=== PATIENT | male | born 1960 | race Caucasian/White ===

== ENCOUNTER 2024-01-02 09:52 | Outpatient (OUT) | payer MEDICARE, SELFPAY ==
[2024-01-02 10:57] LABS: Percent Iron Saturation 34.5 %
[2024-01-02 11:14] LABS: Prostate Specific Antigen Dx 0.24 ng/mL (<=4.00)
[2024-01-02 11:32] LABS: Alanine Aminotransferase 21 U/L (16-63); Albumin Level 3.8 g/dL (3.4-5.0); Alkaline Phosphatase 69 U/L (46-116); Anion Gap 14.6; Aspartate Amino Transferase 20 U/L (15-37); BUN Creatinine Ratio 22.8; Bilirubin Total 0.3 mg/dL (0.2-1.0); Calcium 9.1 mg/dL (8.5-10.1); Carbon Dioxide 26.6 mmol/L (21.0-32.0); Chloride 106 mmol/L (98-107); Chol HDL Ratio 2.4; Cholesterol 178 mg/dL (<=200); Estimated GFR (African America >60 (>=60); Estimated GFR (Non-African Ame >60 (>=60); Globulin 3.9 g/dL; Glucose 84 mg/dL (74-106); HDL Cholesterol 73 mg/dL (40-60); Magnesium 1.7 mg/dL (1.8-2.4); Potassium 4.2 mmol/L (3.5-5.1); Sodium 143 mmol/L (136-145); Thyroid Stimulating Hormone 0.957 uIU/mL (0.358-3.740); Total Protein 7.7 g/dL (6.4-8.2); Triglycerides 66 mg/dL (<=150); VLDL CHOLESTEROL 13.2 mg/dL
[2024-01-02 12:08] LABS: Basophils Absolute Auto 0.1 10^3/uL (0.0-0.1); Basophils Percent Auto 1.2 % (0.2-2.0); Eosinophils Absolute Auto 0.2 10^3/uL (0.0-0.7); Eosinophils Percent Auto 2.2 % (0.9-7.0); Hematocrit 33.9 % (42.0-54.0); Hemoglobin 11.1 g/dL (14.0-18.0); Immature Granulocytes Abs Auto 0.02 10^3/uL (0.00-0.03); Immature Granulocytes Pct Auto 0.2 % (0.0-0.5); Lymphocytes Percent Auto 23.1 % (20.5-60.0); Mean Corpuscular HGB Conc 32.7 g/dL (29.9-35.2); Mean Corpuscular Hemoglobin 29.1 pg (25.9-34.0); Mean Platelet Volume 9.2 fL (9.5-13.5); Monocytes Absolute Auto 0.4 10^3/uL (0.3-0.8); Monocytes Percent Auto 4.7 % (1.7-12.0); Neutrophils Absolute Auto 5.9 10^3/uL (1.4-6.5); Neutrophils Percent Auto 68.6 % (43.0-75.0); Platelet Count 213 10^3/uL (150-450); Red Blood Count 3.81 10^6/uL (4.70-6.10); Red Cell Distribution Width 12.6 % (11.0-15.0); White Blood Count 8.6 10^3/uL (4.0-11.0)
== END 2024-01-02 09:53 | disposition home or self-care (01) ==
LOC: LAB 09:59
PROVIDERS: PCP Family Medicine; Visit Provider Family Medicine
DX: E78.2 Mixed hyperlipidemia (principal); Z12.5 Encounter for screening for malignant neoplasm of prostate; K21.9 Gastro-esophageal reflux disease without esophagitis; E55.9 Vitamin D deficiency, unspecified; D50.8 Other iron deficiency anemias
CPT/HCPCS: 36415; 80053; 80061; 82306; 83540; 83550; 83735; 84153; 84443; 85025

== ENCOUNTER 2025-09-10 08:50 | Outpatient (OUT) | payer MEDICARE, SELFPAY ==
--- OUTSIDE RECORDS SUMMARY | 2014-01-02 08:59 | XMS_ITS | Continuity of Care Document ---
Author Organization [facility] Address [address] [place] [address] Phone Care Team Providers Care Quality Assurance Monitor Name Role Phone Merna Davies Unavailable Unavailable Allergies, Adverse Reactions, Alerts Substance Reaction Status Criticality No Known allergies Medications Medication Instructions Dosage Effective Dates (start - stop) Status Comments omeprazole 20 mg Cap, Delayed Release take 1 capsule (20MG) by oral route every day before a meal 20 MG - Active prednisone 20 mg Tab take 1 tablet (20MG ) by oral route every day 20 MG - Active metoprolol tartrate 25 mg Tab take 1 tablet (25MG) by oral route every day 25 MG - Active Nexium 40 mg Cap take 1 capsule (40MG ) by oral route 2 times every day 40 MG - Active methimazole 10 mg Tab take 1 tablet (10M G) by oral route every day 10 MG - Active folic acid 1 mg Tab take 3 Tablet (3MG) by oral route every morning 3 MG - Active Procedures Procedure Date OFFICE/OUTPATIENT VISIT, EST MEASURE BLOOD OXYGEN LEVEL EST OFFICE VISIT LEVEL 3 EST OFFICE VISIT LEVEL 4 OFFICE/OUTPATIENT VISIT, EST EST OFFICE VISIT LEVEL 4 ROUTINE VENIPUNCTURE CBC W/DIFF & PLT COMP METABOLIC PANEL IRON/TOTAL IRON BIND CAPACITY 2 EST OFFICE VISIT LEVEL 3 OFFICE/OUTPATIENT VISIT, EST ROUTINE VENIPUNCTURE COMP METABOLIC PANEL FERRITIN IRON/TOTAL IRON BIND CAPACITY 2 CBC W/DIFF & PLT PSA, TOTAL MEASURE BLOOD OXYGEN LEVEL NEW OFFICE VISIT LEVEL 2 NEW OFFICE VISIT LEVEL 2 Advance Directives Directive Yes / No Effective Date File Name No Information Encounters Encounter Description Practice Location Reason(s) For Visit Diagnoses Date Provider Providers Copied on Encounter [facility], [address] [place] [address], [id number] , tel:+ [phone] [facility] No Information 4 Hemmer Merna. [address] [place] [address], [id number] , [place]. [facility], [address] [place] [address], [id number] , tel: [phone] [facility] No Information 3 Hemmer Merna. [address] [place] [address], [id number] , [place]. [facility], [address] [place] [address], [id number] , [place] tel: [phone] [facility] No Information 3 Lamp Laura. [address] [place] [address], [id number] , [place]. tel: [phone] OFFICE/OUTPA TIENT VISIT, EST [facility], [address] [place] [address], [id number] , tel:+ [phone] [facility] medication refill (chief complaint) Pituitary adenomaStomach ulcerHypothyroidism 3 Hemmer Merna. [address] [place] [address], [id number] , [place]. [facility], [address] [place] [address], [id number] , tel:+ [phone] [facility] Abnormal loss of weight and underweightDiarrhea 2 Hemmer Merna. [address] [place] [address], [id number] , [place]. EST OFFICE VISIT LEVEL 3 [facility], [address], [place], [id number] , [place] tel:+ [phone] [facility] f/u chest CT (chief complaint) Shortness of BreathAbnormal loss of weight and underweightHemoptysi sNausea aloneDiarrhea 2 Hemmer Merna. [address] [place], [place], [id number] , [place]. EST OFFICE VISIT LEVEL 4 [facility], [address] [place] [address], [id number] , [place] tel:+ [phone] [facility] review test results (chief complaint) Shortness of BreathPain in thoracic spineAbnormal loss of weight and underweightHemoptysi sNausea alone 2 Hemmer Merna. [address] [place] [address], [id number] , [place]. EST OFFICE VISIT LEVEL 4 [facility], [address] [place] [address], [id number] , [place] tel: [phone] [facility] follow up on lab / diagnostic test (chief complaint) AnemiaShortness of BreathChest Pain, UnspecifiedSeborrhei c dermatitis Sep-2 0- 2 Hemmer Merna. [address] [place] [address], [id number] , [place]. [facility], [address] [place] [address], [id number] , tel: [phone] [facility] No Information Jul- 2- 2 Hemmer Merna. [address] [place] [address], [id number] , [place]. EST OFFICE VISIT LEVEL 3 [facility], [address] [place] [address], [id number] , [place] tel:+ [phone] [facility] fatigue (chief complaint) AnemiaShortness of BreathPain in thoracic spineUnspecified protein-calorie malnutritionAbnormal Liver Enzymes [place]- 3 2 Hemmer Merna. [address] [place] [address], [id number] , [place]. [facility], [address] [place] [address], [id number] , tel:+ [phone] [facility] No Information 2 Hemmer Merna. [address] [place], [place], [id number] , . NEW OFFICE VISIT LEVEL 2 [facility], [address] [place], [place], [id number] , tel: [phone] [facility] fatigue (chief complaint) OtherAnemia, Iron DeficiencyShortness of BreathHematuria, UnspecifiedPain in thoracic spineUnspecified protein-calorie malnutrition 2 Hemmer Merna. [address] [place], [place], [id number] , [place]. Family History Family Member Type Diagnosis Age At Onset Father Problem (finding) Alive and well 78 Problem (finding) Family history of Cance r Sister Problem (finding) migraine Payers Payer name Insurance type Covered alliance party ID Authoriza tion(s) No Information Social History Type Description Quantity Date Captured Comments Sex Male Smoking Status No Information Chief Complaint And Reason For Visit No Information Reason For Referral Reason For Referral No Information Plan Of Treatment Date Type Action Status Goal Tobacco cessation counseling completed History Of Present Illness Encounter Date Complaint History Of Prese nt Illness No Information Functional Status Date Functional Assessmen t No Information Instructions Date Instruction Additional Infor mation No Information Assessments Type Assessment Date No Information Patient Care Teams Name Effective Dates (start - stop) Status Members No Information
--- OUTSIDE RECORDS SUMMARY | 2025-09-10 08:55 | XMS_ITS | Encounter Summary ---
Author Organization [facility] Address [address] [place] [address] Care Team Providers Care Data Base Design Analyst Name Role Phone Niru Dunlap CORPORATE REAL ESTATE SPECIALIST Unavailable [phone] Dennis Ramirez MD Primary Care Provider [phone] Dennis Ramirez MD Unavailable [phone] Encounter Details Date Type Department Care Team (Late st Contact Info) Description 12/10/2023 Abstract [facility] [address] [place] [id number] Dennis Ramirez MD [address] [place] [address] Social History Tobacco Use Types Packs/Day Years Used Date Smoking Tobacco: Former Cigarettes Q uit: 2020 Smokeless Tobacco: Never Alcohol Use Standard Drinks/Week Comments Never 0 (1 standard drink = 0.6 oz pur e alcohol) AUDIT-C Answer Date Recorded Q1: How often do you have a drink containing alcohol? Never 09/30/2023 Q2: How many drinks containi ng alcohol do you have on a typical day when you are drinking? Patient does not drink Q3: How often do you have si x or more drinks on one occasion? Never 09/30/2023 PHQ-2 Answer Date Recorded Patient Health Questionnaire-2 Score 0 07/04/2023 Sex and Gender Information Value Date Recorded Sex Assigned at Not on file Legal Sex Male 6:53 PM EDT Gender Identity Not on file Sexual Orientation Not on file documented as of this encounter Plan of Treatment Upcoming Encounters Date Type Department Care Team (Late st Contact Info) Description 09/30/2025 2:40 PM EST Office Visit [facility] [address] [place] [address] Dennis Ramirez MD [address] [place] [address] documented as of this encounter Visit Diagnoses Not on filedocumented in this encounter Additional Health Concerns Assessment Noted Time PHQ-9 Depression Total Score: 0 07/04/20 23 1:00 PM EDT documented as of this encounter Care Teams Data Base Design Analyst Relationship Specialty Start Date End Date Niru Dunlap NP [address] [place] [address] PCP - ACO Reach 04/18/23 01/23/24 Dennis Ramirez MD [address] [place] [address] PCP - General Family Medicine 05/21/23 Dennis Ramirez MD [address] [place] [address] PCP - ACO Reach 01/24/24 documented as of this encounter
--- OUTSIDE RECORDS SUMMARY | 2025-09-10 08:55 | XMS_ITS | Encounter Summary ---
Author Organization [facility] Address [address] [place] [address] Care Team Providers Care Credit Specialist Name Role Phone Dennis Ramirez MD Primary Care Provider [phone] Dennis Ramirez MD Unavailable [phone] Encounter Details Date Type Department Care Team (Late st Contact Info) Description 06/30/2024 Abstract [facility] [address] [place] [address] Dennis Ramirez MD [address] [place] [address] Social History Tobacco Use Types Packs/Day Years Used Date Smoking Tobacco: Former Cigarettes Q uit: 2020 Smokeless Tobacco: Never Alcohol Use Standard Drinks/Week Comments Never 0 (1 standard drink = 0.6 oz pur e alcohol) Humiliation, Afraid, Rape, and Kick questionnair e Answer Date Recorded Within the last year, have y ou been afraid of your partner or ex-partner? No 12/30/2023 Within the last year, have y ou been humiliated or emotionally abused in other ways by your partner or ex-partner? No Within the last year, have y ou been kicked, hit, slapped, or otherwise physically hurt by your partner or ex-partner? No 12/30/2023 Within the last year, have y ou been raped or forced to have any kind of sexual activity by your partner or ex-partner? No 12/30/2023 Social Connection and Isolation Panel Answer Date Recorded In a typical week, how many times do you talk on the phone with family, friends, or neighbors? Three times a week 12/30/2023 How often do you get togethe r with friends or relatives? Once a week 12/30/2023 How often do you attend chur or taoism services? More than 4 times per year 12/30/2023 Do you belong to any clubs o r organizations such as rastafari groups, unions, fraternal or athletic groups, or school groups? Yes 12/30/2023 How often do you attend meet ings of the clubs or organizations you belong to? Never 12/30/2023 Are you , , di vorced, , never , or living with a partner? Never 12/30/2023 AUDIT-C Answer Date Recorded Q1: How often do you have a drink containing alcohol? Never 12/30/2023 Q2: How many drinks containi ng alcohol do you have on a typical day when you are drinking? Patient does not drink Q3: How often do you have si x or more drinks on one occasion? Never 12/30/2023 Overall Financial Resource Strain (CARDIA) Answe r Date Recorded How hard is it for you to pa y for the very basics like food, housing, medical care, and heating? Not hard at all 12/30/2023 PHQ-2 Answer Date Recorded Patient Health Questionnaire-2 Score 1 06/30/2024 [facility] - Occupational Stress Questionnaire Answer Date Recorded Do you feel stress - tense, restless, nervous, or anxious, or unable to sleep at night because your mind is troubled all the time - these days? To some extent 12/30/2023 Exercise Vital Sign Answer Date Recorde d On average, how many days pe r week do you engage in moderate to strenuous exercise (like a brisk walk)? 5 days 12/30/2023 On average, how many minutes do you engage in exercise at this level? 40 min 12/30/2023 Hunger Vital Sign Answer Date Recorded Within the past 12 months, y ou worried that your food would run out before you got the money to buy more. Never true 12/30/19 24 Within the past 12 months, t he food you bought just didn't last and you didn't have money to get more. Never true 12/30/2023 PRAPARE - Transportation Answer Date Re corded In the past 12 months, has l ack of transportation kept you from medical appointments or from getting medications? No 03/2024 In the past 12 months, has l ack of transportation kept you from meetings, work, or from getting things needed for daily living? No 12/30/2023 Housing Stability Vital Sign Answer Sky e Recorded In the last 12 months, was t here a time when you were not able to pay the mortgage or rent on time? No 12/30/2023 In the last 12 months, how many places have you lived? 1 12/30/2023 In the last 12 months, was t here a time when you did not have a steady place to sleep or slept in a [place] (including now)? No 12/30/2023 Sex and Gender Information Value Date Recorded Sex Assigned at Not on file Legal Sex Male 6:53 PM EDT Gender Identity Not on file Sexual Orientation Not on file documented as of this encounter Functional Status * Over the past 2 weeks, how often have you been bothered by any of the following problems? Question Answer Date of Assessment Author Little interest or pleasure in doing things Several days 06/30/2024 2:00 PM MELANIET Geovanna Kim MA Feeling down, depressed, or hopeless Not at all 06/30/2024 2:00 PM EDT Geovanna Kim MA Patient Health Questionnaire-2 Score 1 06/30/2024 2:00 PM EDT Fanta Kim MA * Question Answer Date of Assessment Author Trouble falling or staying asleep, or sleeping too much Not at all 06/30/2024 2:00 PM MELANIET Geovanna Kim MA Feeling tired or having little energy Not at all 06/30/2024 2:00 PM MELANIET Geovanna Kim MA Poor appetite or overeating Not at all 06/30/2024 2: 00 PM EDT Geovanna Kim MA Feeling bad about yourself - or that you are a failure or have let yourself or your family down Not at all 06/30/2024 2:00 PM EDT Geovanna Kim MA Trouble concentrating on things, such as reading the newspaper or watching television Not at all 06/30/2024 2:00 PM EDT Geovanna Kim MA Moving or speaking so slowly that other people could have noticed? Or the opposite - being so fidgety or restless that you have been moving around a lot more than usual. Not at all 06/30/2024 2:00 PM EDT Geovanna Kim MA Thoughts that you would be better off or hurting yourself in some way Not at all 06/30/2024 2:00 PM EDT Mariaelena Kim MA Patient Health Questionnaire-9 Score 1 06/30/2024 2:00 PM EDT Fanta Kim MA documented as of this encounter Plan of Treatment Upcoming Encounters Date Type Department Care Team (Late st Contact Info) Description 09/30/2025 2:40 PM EST Office Visit [facility] [address] [place] [address] Dennis Ramirez MD [address] [place] [address] documented as of this encounter Visit Diagnoses Not on filedocumented in this encounter Additional Health Concerns Assessment Noted Time PHQ-9 Depression Total Score: 1 06/30/20 24 2:00 PM EDT documented as of this encounter Care Teams Credit Specialist Relationship Specialty Start Date End Date Dennis Ramirez MD [address] [place] [address] PCP - General Family Medicine 05/21/23 Dennis Ramirez MD [address] [place] [address] PCP - ACO Reach 01/24/24 documented as of this encounter
--- OUTSIDE RECORDS SUMMARY | 2025-09-10 08:56 | XMS_ITS | Encounter Summary ---
Author Organization [facility] Address [address] [place] [address] Care Team Providers Care Cloud Solutions Architect Name Role Phone Niru Dunlap NP Unavailable [phone] Dennis Ramirez MD Primary Care Provider [phone] Dennis Ramirez MD Unavailable [phone] Encounter Details Date Type Department Care Team (Late Contact Info) Description 06/29/2023 Orders Only [facility] [address] [place] [address] Dennis Ramirez MD [address] [place] [address] Social History Tobacco Use Types Packs/Day Years Used Date Smoking Tobacco: Never Assessed Sex and Gender Information Value Date Recorded Sex Assigned at Not on file Legal Sex Male 6:53 PM EDT Gender Identity Not on file Sexual Orientation Not on file documented as of this encounter Plan of Treatment Upcoming Encounters Date Type Department Care Team (Late st Contact Info) Description 09/30/2025 2:40 PM EST Office Visit [facility] [address] [place] [phone] Dennis Ramirez MD [address] [place] [address] documented as of this encounter Visit Diagnoses Not on filedocumented in this encounter Care Teams Cloud Solutions Architect Relationship Specialty Start Date End Date Niru Dunlap NP [address] [place] [address] PCP - ACO Reach 04/18/23 01/23/24 Dennis Ramirez MD [address] [place] [address] PCP - General Family Medicine 05/21/23 Dennis Ramirez MD [address] [place] [address] PCP - ACO Reach 01/24/24 documented as of this encounter
--- OUTSIDE RECORDS SUMMARY | 2025-09-10 08:56 | XMS_ITS | Encounter Summary ---
Author Organization [facility] Address [address] [place] [address] Care Team Providers Care Local Operator Name Role Phone Niru Dunlap FAN ENGINE ENGINEER Primary Care Provider [phone] Source Comments In the event this information is protected by the Federal Confidentiality of Alcohol and Drug AbusePatient Records regulations: The Federal rules restrict any use of the information to criminally investigate or prosecute any alcohol or drug abuse patient.[facility] Encounter Details Date Type Department Care Team (Latest Contact Info) Description 07/03/2022 H&P External-NonCCF Provider, External, PA-C Do not enter address information under generic External Provider. Social History Tobacco Use Types Packs/Day Years Used Date Smoking Tobacco: Some Days Cigarettes 0.5 15 Started: 11/08/1995; Last attempted to quit: 11/08/2010 Smokeless Tobacco: Never Alcohol Use Standard Drinks/Week Comments Yes 0 (1 standard drink = 0.6 oz pur e alcohol) once per month Sex and Gender Information Value Date Recorded Sex Assigned at Not on file Legal Sex Male 11:29 AM EDT Gender Identity Not on file Sexual Orientation Not on file Occupation Industry Job Start Date Job End Date Retired Not on file Not on file Not on file documented as of this encounter Functional Status * Are you deaf or do you have serious difficulty hearing? Answer Date of Assessment Author Yes 02/10/2015 9:28 AM Teri Llanes MA * Are you blind or do you have serious difficulty seeing, even when wearing glasses? Answer Date of Assessment Author No 02/10/2015 9:28 AM Teri Llanes MA * Do you have serious difficulty walking or climbing stairs? Answer Date of Assessment Author No 02/10/2015 9:28 AM Teri Llanes MA * Do you have difficulty dressing or bathing? Answer Date of Assessment Author No 02/10/2015 9:28 AM Teri Llanes MA * Because of a physical, mental, or emotional condition, do you have difficulty doing errands alone such as visiting a doctor's office or shopping? Answer Date of Assessment Author No 02/10/2015 9:28 AM Trei Llanes MA documented as of this encounter Mental Status * Because of a physical, mental, or emotional condition, do you have serious difficulty concentrating, remembering, or making decisions? Answer Entry Date Author No 02/10/2015 9:28 AM Teri Llanes MA documented in this encounter Plan of Treatment Not on file documented as of this encounter Visit Diagnoses Not on filedocumented in this encounter Care Teams Local Operator Relationship Specialty Start Date End Date Niru Dunlap NP [address] [place] [address] PCP - General Family Medicine 07/03/22 documented as of this encounter
--- OUTSIDE RECORDS SUMMARY | 2025-09-10 08:56 | XMS_ITS | Encounter Summary ---
Author Organization [facility] Address [address] [place] [address] Care Team Providers Care Credit Administrator Name Role Phone Niru Dunlap MEDIA LAW FACULTY MEMBER Unavailable [phone] Dennis Ramirez MD Primary Care Provider [phone] Dennis Ramirez MD Unavailable [phone] Encounter Details Date Type Department Care Team (Late st Contact Info) Description 10/01/2023 Abstract [facility] [address] [place] [phone] Dennis Ramirez MD [address] [place] [address] Social History Tobacco Use Types Packs/Day Years [...] [facility] [address] [place] [address] Dennis Ramirez MD [address] [place] [address] documented as of this encounter Visit Diagnoses Not on filedocumented in this encounter Additional Health Concerns Assessment Noted Time PHQ-9 Depression Total Score: 0 07/04/20 23 1:00 PM EDT documented as of this encounter Care Teams Credit Administrator Relationship Specialty Start Date End Date Niru Dunlap NP [address] [place] [address] PCP - ACO Reach 04/18/23 01/23/24 Dennis Ramirez MD [address] [address] PCP - General Family Medicine 05/21/23 Dennis Ramirez MD [address] [place] [address] PCP - ACO Reach 01/24/24 documented as of this encounter
--- OUTSIDE RECORDS SUMMARY | 2025-09-10 08:56 | XMS_ITS | Clinical Summary ---
Author Organization [facility] Address [address] [place] [address] Care Team Providers Care Manager Stylist Name Role Phone Sanjuana Dunlape Clemente BARNETT Primary Care Provider + [phone] Allergies Active Allergy Reactions Criticality Noted Date Comments Meloxicam Rash 07/10/2022 Medications metHIMazole (TAPAZOLE) 5 mg tablet Take 5 mg by mouth once daily. Active metoprolol tartrate, short acting, (LOPRESSOR) 25 mg tablet Take 1 tablet by mouth once daily. 90 tablet 1 6 Active omeprazole (PRILOSEC) 20 mg capsule Take 1 capsule by mouth once daily. 30 capsule 7 Active cabergoline (DOSTINEX) 0.5 mg tablet TAKE 1/2 TABLET BY MOUTH ON SATURDAY AND 1/2 TABLET ON THURSDAYS 12 tablet 7 Active pravastatin (PRAVACHOL) 20 mg tablet Take 20 mg by mouth once daily. Active esomeprazole (NEXIUM) 20 mg capsule Take 20 mg by mouth once daily. Active levothyroxine (SYNTHROID) 25 mcg tablet Take 25 mcg by mouth daily before breakfast. Active cholecalciferol, vitamin D3, (VITAMIN D3 ORAL) Take 125 mcg by mouth once daily. Active HYDROcodone-Aceta minophen (NORCO) 7.5-325 mg per tablet Take 1 tablet by mouth every 8 hours as needed for pain. Active Iron Polysacch [id number] (NIFEREX/FERREX-1 50 FORTE) 150-25-1 mg-mcg-mg capIndications:An emia, unspecified type,Pituitary macroadenoma (HCC) Take 1 capsule by mouth once daily. 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 Hearing loss 02/10/2015 Immunizations Immunization Administration Dates Next Due pneumococcal conjugate (PCV1 3) vaccine, 13 valent (PREVNAR 13) 02/02/2016 pneumococcal polysaccharide (PPV23) vaccine, 23 valent (PNEUMOVAX 23) 02/11/2017 Family History Medical History Relation Comments Cancer Maternal Uncle 1 Cancer Maternal Uncle 2 Cancer Maternal Uncle 3 Cancer Maternal Uncle 4 Relation Status Comments Father Maternal Uncle 1 Maternal Uncle 2 Maternal Uncle 3 Maternal Uncle 4 Mother Social History Tobacco Use Types Packs/Day Years Used Date Smoking Tobacco: Former Cigarettes 0.5 15 1 01/09/1995 - 11/08/2010 Passive Smoke Exposure: Past Smokeless Tobacco: Never Tobacco Cessation:Counseling Given: Not Answered Alcohol Use Standard Drinks/Week Comments Yes 0 (1 standard drink = 0.6 oz pur e alcohol) once per month Area Deprivation Index Answer Date Fadi rded National Score (1-100), lower number is lower ri sk 52 12/11/2022 State Score (1-10), lower number is lower risk N ot on file 12/11/2022 Data from: https://www.neighborhoodatlas.medicine.[facility].edu/. Last address used for calculation [address] 12/11/2022 Sex and Gender Information Value Date Recorded Sex Assigned at Not on file Legal Sex Male 11:29 AM EDT Gender Identity Not on file Sexual Orientation Not on file Occupation Industry Job Start Date Job End Date Retired Not on file Not on file Not on file Last Filed Vital Signs Vital Sign Reading Time Taken Comments Blood Pressure 103/70 07/25/2022 1:59 PM EDT Pulse 69 07/25/2022 1:59 PM EDT Temperature 36.6 C (97.8 F) 07/25/2022 1:59 PM EDT Respiratory Rate 16 07/25/2022 1:59 PM EDT Oxygen Saturation 98% 07/25/2022 1:59 PM EDT Inhaled Oxygen Concentration - - Weight 82.2 kg (181 lb 3.2 oz) 07/25/2022 1:59 P M EDT Height 173.7 cm (5' 8.39 ) 07/25/2022 1:59 PM ED T Body Mass Index 27.24 07/25/2022 1:59 PM EDT Plan of Treatment Health Maintenance Due Date Last Done Comments Abdominal Aortic Aneurysm Screening 1959 Anxiety Screening 1977 Depression Screening 1977 HIV Screening 1977 Hepatitis C Screening 1977 DTaP,Tdap,Td Vaccine (1 - Tdap) [address] Colonography 2004 Cologuard (FIT-DNA) 2004 Colonoscopy 2004 Sigmoidoscopy 2004 Shingrix Vaccine (1 of 2) 2009 Pneumococcal Vaccine: 50+ (3 of 3 - PCV20 or PCV21) 02/11/2022 02/11/2017, 02/02/2016 Colorectal Cancer Screening 07/24/2023 Fecal Occult Blood 07/24/2023 07/24/2022 Advance Directive Discussion 11/25/2024 Diabetes Screening 07/11/2025 07/11/2022, 02/10/2015 Covid-19 Vaccine ( - 2024- season) 2025 Influenza Vaccine (#1) 2025 Prostate Cancer Screening Discussion 06/17/2026 07/2 02/2021, 02/10/2015 RSV Vaccine (1 - 1-dose 75+ series) 2034 Procedures Procedure Name Priority Date/Time Associated Diagnosis Comments HGB FECAL IA Routine 07/24/2022 10:30 AM EDT Anemia, unspecified type COMPREHENSIVE METABOLIC PANEL Routine 07/11/2022 1:22 PM EDT Anemia, unspecified type PSA/PROSTSPECAG SCRN Routine 02/10/2015 10:47 AM EDT Special screening for malignant neoplasm of prostate Pituitary macroadenoma (HCC) from Last 3 Months or Most Recently Relevant to Health Maintenance Results * FECAL OCCULT BLOOD TEST (07/24/2022 10:30 AM EDT) Pathologist [facility] Occult Blood, Stool Negative Negative 07/25/2022 12:09 PM EDT [facility] Stool Random STOOL SPECIMEN / Unknown 07/24/2022 10:30 AM EDT 07/24/2022 1:11 PM EDT Narrative [facility] - 07/25/2022 12:09 PM EDT This test was developed and its performance characteristics determined by [facility]'s [facility] [place] ([facility]). It has not been cleared or approved by the FDA. -[facility] is regulated under CLIA as qualified to perform high-complexity testing. This test is used for clinical purposes. It should not be regarded as investigational or for research. us Baldemar Riggins MD LABORATORY Final Result [facility] [address] [place] [address], [place] * (ABNORMAL) COMP METABOLIC PANEL (07/11/2022 1:22 PM EDT) [facility] Protein, Total 6.4 6.3 - 8.0 g/dL 07/11/2022 1:51 PM EDT [facility] Albumin 4.1 3.9 - 4.9 g/dL 07/11/2022 1:51 PM EDT [facility] Calcium, Total 9.7 8.5 - 10.2 mg/dL 07/11/2022 1:51 PM EDT [facility] Bilirubin, Total 0.3 0.2 - 1.3 mg/dL 07/11/2022 1:51 PM EDT [facility] Alkaline Phosphatase 68 38 - 113 U/L 07/11/2022 1:51 PM EDT [facility] AST 27 14 - 40 U/L 07/11/2022 1:51 PM EDT [facility] ALT 22 10 - 54 U/L 07/11/2022 1:51 PM EDT [facility] Glucose 93 74 - 99 mg/dL 07/11/2022 1:51 PM [facility] Comment: The [place] Diabetes Association (ADA) provides guidance for cutoff values for fasting glucose and random glucose. The ADA defines fasting as no caloric intake for at least 8 hours. Fasting plasma glucose results between 100 to 125 mg/dL indicate increased risk for diabetes (prediabetes). Fasting plasma glucose results greater than or equal to 126 mg/dL meet the criteria for diagnosis of diabetes. In the absence of unequivocal hyperglycemia, results should be confirmed by repeat testing. In a patient with classic symptoms of hyperglycemia or hyperglycemic crisis, random plasma glucose results greater than or equal to 200 mg/dL meet the criteria for diagnosis of diabetes. Reference: Standards of Medical Care in Diabetes 2016, [place] Diabetes Association. Diabetes Care. 2016.39(Suppl 1). BUN 18 9 - 24 mg/dL 07/11/2022 1:51 PM [facility] Creatinine 1.18 0.73 - 1.22 mg/dL 07/11/2022 1:51 PM T [facility] Sodium 141 136 - 144 mmol/L 07/11/2022 1:51 PM [facility] Potassium 3.6(L) 3.7 - 5.1 mmol/L 07/11/2022 1:51 PM T [facility] Chloride 106(H) 97 - 105 mmol/L 07/11/2022 1:51 PM [facility] CO2 26 22 - 30 mmol/L 07/11/2022 1:51 PM T [facility] Anion Gap 9 9 - 18 mmol/L 07/11/2022 1:51 PM [facility] Estimated Glomerular Filtration Rate 70 >=60 mL/min/1. 73m 07/11/2022 1:51 PM [facility] Comment:Estimated Glomerular Filtration Rate (eGFR) is calculated using the 2020 CKD-EPI creatinine equation. This equation utilizes serum creatinine, sex, and age as parameters. The creatinine assay has traceable calibration to isotope dilution- mass spectrometry. Refer to KDIGO guidelines for clinical interpretation. In patients with unstable renal function, e.g. those with acute kidney injury, the eGFR may not accurately reflect actual GFR. Blood BLOOD SPECIMEN / Unknown Venipuncture / Unknown 07/11/2022 1:22 PM EDT 07/11/2022 1:22 PM EDT us Baldemar Riggins MD LABORATORY Final Result [facility] [address] [place] [address] * PSA/PROSTSPECAG SCRN (02/10/2015 10:47 AM EDT) PSA Screening 0.70 0.00 - 2.59 ng/mL 02/10/2015 5:16 PM EDT [facility] Comment:Total PSA test metho dology used is the Electrochemiluminescence Immunoassay. Blood specimen (specimen) BLOOD SPECIMEN / Unknown 02/10/2015 10:47 AM EDT 02/10/2015 10:49 AM EDT us Rafael Aaron MD LABORATORY Final Resul t [facility] [address] [place] [address] from Last 3 Months or Most Recently Relevant to Health Maintenance Insurance MEDICARE Member Subscriber Plan / Payer (Ef fective 2014-Present) Name:Trever Alvarado Member ID:[id number] Relation to Subscriber:Self Name:Trever Alvarado Subscriber ID:[id number] Payer ID:Not on file Group ID:Not on file Type:Medicare Address: [facility] [place] [id number] Care Teams Manager Stylist Relationship Specialty Start Date End Date Niru Dunlap NP [address] [place] [address] PCP - General Family Medicine 07/03/22
--- OUTSIDE RECORDS SUMMARY | 2025-09-10 08:56 | XMS_ITS | Clinical Summary ---
Author Organization [facility] Address [address] [place] [address] Care Team Providers Care Biodiesel Engine Specialist Name Role Phone Dennis Ramirez MD Primary Care Provider Dennis Ramirez MD Unavailable [phone] Allergies No known active allergies Medications Cyanocobalamin (Vitamin B-12) 1000 MCG sublingual tablet Take 1,000 mcg by mouth in the morning. 12/27/19 23 Active cholecalciferol (Vitamin D-3) 125 MCG (5000 UT) capsuleIndications :Vitamin D deficiency Take 1 capsule (125 mcg) by mouth in the morning. 90 capsule 1 07/22/20 23 Active Iron Polysacch [id number] (Poly-Iron 150 Forte) 150-0.025-1 MG capsuleIndications :Other iron deficiency anemia Take 1 capsule by mouth in the morning. 90 capsule 2 11/04/20 23 Active pravastatin (Pravachol) 20 MG tabletIndications: Mixed hyperlipidemia Take 1 tablet (20 mg) by mouth Daily 100 tablet 1 12/30/19 25 Active Additional Information Patient not taking.Reported on 06/29/2025 esomeprazole (NexIUM) [address] capsuleIndications :Gastroesophageal reflux disease without esophagitis Take 1 capsule (20 mg) by mouth Daily 100 capsule 1 06/29/20 25 026 Active HYDROcodone-acetam inophen ([place]) 7.5-325 MG tabletIndications: Other chronic pain,Unilateral post-traumatic osteoarthritis, right hip,Other idiopathic scoliosis, site unspecified Take 1 tablet by mouth every 6 (six) hours if needed for severe pain 100 tablet 08/16/20 25 025 Active HYDROcodone-acetam inophen ([place]) 7.5-325 MG tabletIndications: Other chronic pain,Unilateral post-traumatic osteoarthritis, right hip,Other idiopathic scoliosis, site unspecified Take 1 tablet by mouth every 6 (six) hours if needed for severe pain 100 tablet 07/19/20 25 025 Discontin ued(Reord er) Active Problems Problem Noted Date Diagnosed Date Right hip pain 06/29/2023 Chronic fatigue syndrome 05/17/2023 Gastroesophageal reflux disease 05/17/2023 Hard of hearing 05/17/2023 Iron deficiency anemia 05/17/2023 Hyperlipidemia 05/17/2023 Narcotic dependence, episodic use 05/17/2023 Neoplasm of pituitary gland 05/17/2023 Other chronic pain 05/17/2023 Other idiopathic scoliosis, site unspecified Seasonal allergic rhinitis 05/17/2023 Unilateral post-traumatic osteoarthritis, right hip 05/17/2023 Vitamin D deficiency 05/17/2023 Resolved Problems Problem Noted Date Diagnosed Date Resolved Date Grief reaction 05/17/2023 07/04/2023 [id number] condition 05/17/2023 08/ Adjustment disorder with depressed mood 12/18/2021 07/04/2023 Acquired hypothyroidism 06/21/2021 08/1 FPC current use of systemic steroids 06/21/2021 07/04/2023 Compression fracture of vertebra 06/08/2020 07/04/2023 Essential hypertension 02/11/201707/04 Hyperthyroidism 02/10/2015 07/04/2023 Pituitary macroadenoma 02/10/201507/04 Overview (07/04/2023): 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 07/04/2023 Encounters Date Type Department Care Team Description 08/16/2025 Refill [facility] [address] [place] [address] Tere Rangel Other chronic pain; Unilateral post-traumatic osteoarthritis, right hip; Other idiopathic scoliosis, site unspecified 07/15/2025 Refill [facility] [address] [place] [address] Tere Rangel Other chronic pain; Unilateral post-traumatic osteoarthritis, right hip; Other idiopathic scoliosis, site unspecified 06/29/2025 4:00 PM EDT Office Visit [facility] [address] [place] [address] Dennis Ramirez MD Medicare annual wellness visit, subsequent (Primary Dx); Gastroesophageal reflux disease without esophagitis; Neoplasm of pituitary gland; Chronic fatigue syndrome; Other idiopathic scoliosis, site unspecified; Vitamin D deficiency; Other iron deficiency anemia; Seasonal allergic rhinitis due to pollen; Mixed hyperlipidemia ; Encounter for screening for malignant neoplasm of colon; Advance directive discussed with patient; Narcotic dependence, episodic use (HCC) 06/29/2025 Bamboo flowsheet [facility] [address] [place] [address] Dennis Ramirez MD 06/29/2025 Travel 06/14/2025 Refill [facility] [address] [place] [address] Dennis Ramirez MD Other chronic pain; Unilateral post-traumatic osteoarthritis, right hip; Other idiopathic scoliosis, site unspecified from Last 3 Months Immunizations Immunization Administration Dates Next Due Influenza, injectable, MDCK, preservative free, quadrivalent 09/30/2023 Pneumococcal Conjugate PCV 13 02/02/2016 Pneumococcal Polysaccharide PPSV23 02/11/2017 Family History Medical History Relation Name Comments No Known Problems Brother yash palm 1963 No Known Problems Daughter juli 1984 No Known Problems Father natalia palm 1930(9 4 ) Heart disease Mother nico 86 Cardiomyopathy Sister 1 michelle 1957 Peripheral vascular disease Sister 1 michelle Raynaud syndrome Sister 1 michelle No Known Problems Sister 2 vladimir saw3201 No Known Problems Sister 3 devan 1948 Relation Name Status Comments Brother yash Alive Daughter juli Alive Father natalia Alive Mother nico Sister 1 michelle Alive Sister 2 vladimir Alive Sister 3 devan Alive Social History Tobacco Use Types Packs/Day Years Used Date Smoking Tobacco: Former Cigarettes Q uit: 2020 Smokeless Tobacco: Never Tobacco Cessation:Counseling Given: Not Answered Alcohol Use Standard Drinks/Week Comments Never 0 [...] week 12/30/2023 How often do you attend [facility] or [employer] services? More than 4 times per year 12/30/2023 Do you belong to any clubs o r organizations such as mormon groups, unions, fraternal or athletic groups, or [...] Date Recorded Patient Health Questionnaire-2 Score 0 06/29/2025 [facility] of Occupat ional Health - Occupational Stress [...] place to sleep or slept in a retirement (including now)? No 12/30/2023 Sex and Gender Information Value Date Recorded Sex Assigned at Not on file Legal Sex Male 6:53 PM EDT Gender Identity Not on file Sexual Orientation Not on file Last Filed Vital Signs Vital Sign Reading Time Taken Comments Blood Pressure 122/70 06/29/2025 4:09 PM EDT Pulse 72 06/29/2025 4:09 PM EDT Temperature 36.4 C (97.5 F) 06/29/2025 4:09 PM EDT Respiratory Rate 16 06/29/2025 4:09 PM EDT Oxygen Saturation 96% 06/29/2025 4:09 PM EDT Inhaled Oxygen Concentration - - Weight 69.9 kg (154 lb) 06/29/2025 4:09 PM EDT Height 175.3 cm (5' 9 ) 06/29/2025 4:09 PM EDT Body Mass Index 22.74 06/29/2025 4:09 PM EDT Plan of Treatment Upcoming Encounters Date Type Department Care Team (Late st Contact Info) Description 09/30/2025 2:40 PM EST Office Visit [facility] [address] [place] [address] Dennis Ramirez MD [address] [place] [address] Health Maintenance Due Date Last Done Comments CT Colonography 1959 FIT-DNA 1959 Sigmoidoscopy 1959 Pneumococcal Vaccine: 65+ Ye ars (3 of 3 - PCV20 or PCV21) 02/11/2022 02/11/2017, 02/02/2016 Colonoscopy 12/02/2022 12/02/2012 Colorectal Cancer Screening 07/24/2023 FIT 07/24/2023 07/24/2022, 07/24/2022 FOBT 07/24/2023 07/24/2022, 07/24/2022 Influenza Vaccine (#1) 2025 09/30/2023 Medicare Annual Wellness (AWV) 06/29/2026 06/29/2025 Procedures Procedure Name Priority Date/Time Associated Diagnosis Comments HEMOCCULT STL QL IA Routine 07/24/2022 COLONOSCOPY Routine 12/02/2012 12:00 PM EST from Last 3 Months or Most Recently Relevant to Health Maintenance Results * HEMOCCULT STL QL IA (07/24/2022) HEMOCCULT STL QL IA Negative Negative [facility] PERFORMING LAB: see note [facility] Comment:[facility] - Policyholder Information Clerk Id information not found for OBX-specific music producer legend 07/24/2022 us Niru Dunlap SALES DEVELOPMENT CONSULTANT [facility] Final Result [facility] * Colonoscopy (12/02/2012 12:00 PM EST) Anatomical Region Laterality Modality Endoscopy 12/02/2012 12:0 0 PM EST Narrative 12/02/2012 12:00 PM EST PERFORMED AT [facility] LOCATION:[id number] Normal Procedure Note CONVERSION, GENERIC - 04/11/2023 PERFORMED AT [facility] LOCATION:[id number] Normal Dennis Ramirez MD ENDOSCOPY PROCEDURE ORDERABLES Final Result from Last 3 Months or Most Recently Relevant to Health Maintenance Insurance MEDICARE Care Teams Biodiesel Engine Specialist Relationship Specialty Start Date End Date Dennis Ramirez MD [address] [place] [address] PCP - General Family Medicine 05/21/23 Dennis Ramirez MD [address] [place] [address] PCP - ACO Reach 3/1/24
[2025-09-10 09:22] LABS: Hematocrit 35.2 % (42.0-54.0); Hemoglobin 12.0 g/dL (14.0-18.0); Immature Granulocytes Abs Auto 0.02 10^3/uL (0.00-0.03); Immature Granulocytes Pct Auto 0.3 % (0.0-0.5); Lymphocytes Absolute Auto 1.5 10^3/uL (1.2-3.8); Mean Corpuscular HGB Conc 34.1 g/dL (29.9-35.2); Mean Corpuscular Hemoglobin 29.9 pg (25.9-34.0); Mean Corpuscular Volume 87.8 fL (80.0-94.0); Platelet Count 224 10^3/uL (150-450); Red Blood Count 4.01 10^6/uL (4.70-6.10); White Blood Count 6.1 10^3/uL (4.0-11.0)
[2025-09-10 10:13] LABS: Alanine Aminotransferase 24 U/L (16-63); Albumin Globulin Ratio 1.1; Albumin Level 4.0 g/dL (3.4-5.0); Alkaline Phosphatase 79 U/L (46-116); Anion Gap 7.6; Aspartate Amino Transferase 19 U/L (15-37); Blood Urea Nitrogen 15.0 mg/dL (7.0-18.0); Calcium 8.9 mg/dL (8.5-10.1); Carbon Dioxide 28.3 mmol/L (21.0-32.0); Chloride 108 mmol/L (98-107); Cholesterol 201 mg/dL (<=200); Estimated GFR (African America >60 (>=60 mL/min/1.73m^2); Estimated GFR (Non-African Ame >60 (>=60 mL/min/1.73m^2); Free T3 2.17 pg/mL (2.18-3.98); Globulin 3.8 g/dL; Glucose 98 mg/dL (74-106); HDL Cholesterol 67 mg/dL (40-60); Magnesium 1.8 mg/dL (1.8-2.4); Potassium 3.9 mmol/L (3.5-5.1); Sodium 140 mmol/L (136-145); Thyroid Stimulating Hormone 1.260 uIU/mL (0.358-3.740); Total Protein 7.8 g/dL (6.4-8.2); Triglycerides 75 mg/dL (<=150); VLDL CHOLESTEROL 15.0 mg/dL
== END 2025-09-10 08:51 | disposition home or self-care (01) ==
LOC: LAB 08:53
PROVIDERS: PCP Family Medicine; Visit Provider Family Medicine
DX: E03.9 Hypothyroidism, unspecified (principal); I10 Essential (primary) hypertension; E78.2 Mixed hyperlipidemia; E55.9 Vitamin D deficiency, unspecified; R79.0 Abnormal level of blood mineral; Z12.5 Encounter for screening for malignant neoplasm of prostate
CPT/HCPCS: 36415; 80053; 80061; 82306; 83735; 84439; 84443; 84481; 85025; G0103